=== PATIENT | male | born 1990 | race Caucasian/White ===

== ENCOUNTER → 2019-01-11 | Outpatient (CLI) | payer OTHER | END | disposition home or self-care (01) | LOC: LAB 13:26 | PROVIDERS: ATTEND Psychiatry & Neurology Neurology | DX: H46.9 Unspecified optic neuritis (principal) | CPT/HCPCS: 80048; 82570; 82607; 82746; 83921; 84155; 84156; 84165; 84166; 84439; 84443; 85610; 85730; 86226; 86235 ==

== ENCOUNTER 2019-01-25 09:07 | Day surgery (SDC) | payer OTHER ==
[~2019-01-25] VITALS: Ht 182.9 cm; Wt 97.5 kg
[2019-01-25] MEDS ORDERED: MYCO500T PO (10:06)
[2019-01-25] MEDS ORDERED: CYCL100C21 PO (10:08)
[2019-01-25 10:49] VITALS: Ht 182.9 cm; Wt 97.5 kg
[2019-01-25 10:50] VITALS: BP 135/76; PULSE 78; RESP 18
[2019-01-25] MEDS ORDERED: LIDOCAINE 1% (MPF) 5 ML VIAL ONE (12:10)
[2019-01-25 12:44] VITALS: BP 131/74; PULSE 68; RESP 16
== END 2019-01-25 17:00 | disposition home or self-care (01) ==
LOC: SDS 09:07
PROVIDERS: ATTEND Family Medicine
DX: H46.9 Unspecified optic neuritis (principal); G35 Multiple sclerosis
CPT/HCPCS: 62270; 82945; 84157; 86592; 89051; Z7610